=== PATIENT | female | born 1990 | race Caucasian/White ===

== ENCOUNTER 2016-09-24 11:09 | Emergency (ER) | payer MEDICAID ==
[~2016-09-24] VITALS: Ht 167.6 cm; Wt 61.8 kg
[~2016-09-24 11:09] MED LIST: OMEP-110 PO
[2016-09-24 11:12] VITALS: BP 124/81
[2016-09-24] MEDS ORDERED: OXYcodone/APAP 5/325MG TABLET ONE (12:10)
[2016-09-24] MEDS ORDERED: OXYcodone/APAP 5/325MG TABLET PO ONE (12:30)
== END 2016-09-24 12:45 | disposition home or self-care (01) ==
LOC: ED 11:57
DX: S92.524A Nondisplaced fracture of middle phalanx of right lesser toe(s), initial encounter for closed fracture (principal); Z88.6 Allergy status to analgesic agent; X58.XXXA Exposure to other specified factors, initial encounter; Y93.89 Activity, other specified; Y99.8 Other external cause status; Y92.099 Unspecified place in other non-institutional residence as the place of occurrence of the external cause

== ENCOUNTER 2016-10-28 20:56 | Emergency (ER) | payer MEDICAID ==
[~2016-10-28] VITALS: Ht 167.6 cm; Wt 62.3 kg
[2016-10-28 20:58] VITALS: BP 127/76
[2016-10-28] MEDS ORDERED: HYDROcodone/APAP 5/325 TABLET ONE (21:28)
[2016-10-28] MEDS ORDERED: HYDROcodone/APAP 5/325 TABLET PO ONE (21:30)
== END 2016-10-28 22:34 | disposition home or self-care (01) ==
LOC: ED 22:15
DX: S62.366A Nondisplaced fracture of neck of fifth metacarpal bone, right hand, initial encounter for closed fracture (principal); K21.9 Gastro-esophageal reflux disease without esophagitis; W18.09XA Striking against other object with subsequent fall, initial encounter; Y93.89 Activity, other specified; Y99.8 Other external cause status; Y92.099 Unspecified place in other non-institutional residence as the place of occurrence of the external cause
CPT/HCPCS: 29125

== ENCOUNTER 2016-10-31 11:12 | Emergency (ER) | payer MEDICAID ==
[~2016-10-31] VITALS: Ht 170.2 cm; Wt 62.6 kg
[2016-10-31 11:19] VITALS: BP 121/74
[2016-10-31] MEDS ORDERED: IBUPROFEN 200 MG TABLET ONE (11:46)
[2016-10-31] MEDS ORDERED: HYDROcodone/APAP 5/325 TABLET ONE (11:46)
[2016-10-31] MEDS ORDERED: HYDROcodone/APAP 5/325 TABLET PO ONE (12:00)
[2016-10-31] MEDS ORDERED: IBUPROFEN 200 MG TABLET PO ONE (12:00)
== END 2016-10-31 12:24 | disposition home or self-care (01) ==
LOC: ED 12:13
DX: S62.366A Nondisplaced fracture of neck of fifth metacarpal bone, right hand, initial encounter for closed fracture (principal); S62.646B Nondisplaced fracture of proximal phalanx of right little finger, initial encounter for open fracture; K21.9 Gastro-esophageal reflux disease without esophagitis; X58.XXXA Exposure to other specified factors, initial encounter; Y93.89 Activity, other specified; Y92.89 Other specified places as the place of occurrence of the external cause; Y99.8 Other external cause status
CPT/HCPCS: 29125; 99283

== ENCOUNTER 2017-01-29 19:13 | Emergency (ER) | payer MEDICAID ==
[~2017-01-29] VITALS: Ht 167.6 cm; Wt 61.4 kg
[2017-01-29 19:14] VITALS: BP 140/80
[2017-01-29] MEDS ORDERED: HYDROcodone/APAP 5/325 TABLET PO ONE (20:00)
[2017-01-29] MEDS ORDERED: DIAZEPAM 5 MG TABLET PO ONE (20:00)
[2017-01-29] MEDS ORDERED: DIAZEPAM 5 MG TABLET ONE (20:26)
[2017-01-29] MEDS ORDERED: HYDROcodone/APAP 5/325 TABLET ONE (20:27)
[2017-01-29 20:34] LABS: HCG UR OBC PASS
[2017-01-29 20:35] LABS: PATH.CAST-FLAG NOT PRESENT; SPERM-FLAG NOT PRESENT; SRC-FLAG NOT PRESENT; XTAL-FLAG NOT PRESENT; YLC-FLAG NOT PRESENT
== END 2017-01-29 21:23 | disposition home or self-care (01) ==
LOC: ED 21:10
DX: S29.012A Strain of muscle and tendon of back wall of thorax, initial encounter (principal); N30.90 Cystitis, unspecified without hematuria; K21.9 Gastro-esophageal reflux disease without esophagitis; X58.XXXA Exposure to other specified factors, initial encounter; Y93.89 Activity, other specified; Y92.89 Other specified places as the place of occurrence of the external cause; Y99.8 Other external cause status
CPT/HCPCS: 71010; 81001; 81025; 87086; 99285

== ENCOUNTER 2017-07-18 19:06 | Emergency (ER) | payer MEDICAID ==
[~2017-07-18] VITALS: Ht 167.6 cm; Wt 65.0 kg
[~2017-07-18 19:06] MED LIST changes: +CLON0.12 PO
[2017-07-18 19:09] VITALS: BP 113/74
[2017-07-18] MEDS ORDERED: ALPR1TAB2 PO (19:30)
[2017-07-18] MEDS ORDERED: DIAZEPAM 5 MG TABLET PO ONE (20:30)
[2017-07-18] MEDS ORDERED: DIAZEPAM 5 MG TABLET ONE (20:30)
[2017-07-18] MEDS ORDERED: HYDROcodone/APAP 5/325 TABLET PO ONE (20:30)
[2017-07-18] MEDS ORDERED: HYDROcodone/APAP 5/325 TABLET ONE (20:30)
== END 2017-07-18 21:48 | disposition home or self-care (01) ==
LOC: ED 21:17
DX: S39.012A Strain of muscle, fascia and tendon of lower back, initial encounter (principal); K21.9 Gastro-esophageal reflux disease without esophagitis; G43.909 Migraine, unspecified, not intractable, without status migrainosus; W18.30XA Fall on same level, unspecified, initial encounter; Y93.89 Activity, other specified; Y99.8 Other external cause status; Y92.89 Other specified places as the place of occurrence of the external cause
CPT/HCPCS: 72110; 72220; 99284

== ENCOUNTER 2018-08-31 20:25 | Emergency (ER) | payer MEDICAID ==
[~2018-08-31] VITALS: Ht 167.6 cm; Wt 80.7 kg
[~2018-08-31 20:25] MED LIST changes: +ALPR1TAB2 PO
[2018-08-31 20:48] VITALS: BP 147/87
--- NOTE | 2018-08-31 20:54 | NUR ---
assessment made. chart up for MD to see.
--- NOTE | 2018-08-31 21:37 | NUR ---
patient discharged with prescriptions and instruction. vebalized understanding.
== END 2018-08-31 21:39 | disposition home or self-care (01) ==
LOC: ED 21:16
DX: K08.89 Other specified disorders of teeth and supporting structures (principal); K21.9 Gastro-esophageal reflux disease without esophagitis; G43.909 Migraine, unspecified, not intractable, without status migrainosus
CPT/HCPCS: 99283

== ENCOUNTER 2020-01-07 11:34 | Emergency (ER) | payer MEDICAID ==
[~2020-01-07] VITALS: Ht 167.6 cm; Wt 67.9 kg
[~2020-01-07 11:34] MED LIST changes: +APIX5TAB PO
--- NOTE | 2020-01-07 12:18 | NUR ---
CHRISTIN PEREZ AT BEDSIDE FOR INITIAL ASSESSMENT.
[2020-01-07 12:35] VITALS: BP 125/66
--- NOTE | 2020-01-07 12:38 | NUR ---
pt presents to ED with c/o increased vertigo for last 2 days, denies other symptoms. EKG taken in triage, all monitors in place. pt is sinus tach rate 90s with no ectopy. pt a&o, resps even and unlabored, neuro intact. awaiting further orders at this time.
--- NOTE | 2020-01-07 13:02 | NUR ---
dc orders received, pt given dc instructions. pt a&o, resps even and unlabored, nsr on cardiac cath lab manager with no ectopy. pt ambulatory to dc desk with steady gait.
== END 2020-01-07 13:03 | disposition home or self-care (01) ==
LOC: ED 12:53
DX: R42 Dizziness and giddiness (principal); R00.0 Tachycardia, unspecified; R07.89 Other chest pain; G43.909 Migraine, unspecified, not intractable, without status migrainosus; K21.9 Gastro-esophageal reflux disease without esophagitis; Z86.718 Personal history of other venous thrombosis and embolism
CPT/HCPCS: 93005; 99283

== ENCOUNTER 2020-07-31 21:54 | Emergency (ER) | payer MEDICAID ==
[~2020-07-31] VITALS: Ht 167.6 cm; Wt 63.0 kg
[2020-07-31 22:42] LABS: BASOPHILS % (AUTO) 1 % (0-1); EOSINOPHILS % (AUTO) 2 % (1-7); LYMPHOCYTES % (AUTO) 36 % (22-44); MD NO; MEAN CORPUSCULAR HEMOGLOBIN 32.5 pg (27.0-34.8); MEAN CORPUSCULAR HGB CONC 34.5 g/dL (32.4-35.8); MEAN PLATELET VOLUME 8.1 fL (7.4-10.4); MONOCYTES % (AUTO) 8 % (2-9); NEUTROPHILS % (AUTO) 54 % (42-75); PLATELET COUNT 262 x10^3/uL (130-400); RED BLOOD COUNT 4.18 x10^6/uL (3.82-5.3); RED CELL DISTRIBUTION WIDTH 13.2 % (9.6-15.2)
[2020-07-31 22:55] LABS: ALANINE AMINOTRANSFERASE 16 U/L (12-78); ANION GAP 7 mmol/L (5-15); CALCIUM 8.4 mg/dL (8.5-10.1); CHLORIDE 107 mmol/L (98-107); CREATININE 0.83 mg/dL (0.55-1.02)
[2020-07-31 22:59] LABS: ALKALINE PHOSPHATASE 44 U/L (45-117); BILIRUBIN,TOTAL 1.1 mg/dL (0.2-1.0); TOTAL PROTEIN 7.3 g/dL (6.4-8.2)
[2020-07-31 23:01] LABS: MICROSCOPIC INDICATED
[2020-08-01 00:20] VITALS: BP 114/69
[2020-08-01 00:37] LABS: WET PREP WBCS MANY (FEW)
[2020-08-01 00:54] LABS: CLUE CELLS NONE SEEN (NONE SEEN)
== END 2020-08-01 01:31 | disposition home or self-care (01) ==
LOC: ED 08-01 01:15
DX: R10.32 Left lower quadrant pain (principal); N73.0 Acute parametritis and pelvic cellulitis; N89.8 Other specified noninflammatory disorders of vagina; K21.9 Gastro-esophageal reflux disease without esophagitis; G43.909 Migraine, unspecified, not intractable, without status migrainosus; R11.0 Nausea
CPT/HCPCS: 36415; 80053; 81001; 83690; 84703; 85025; 87086; 87147; 87210; 87491; 87591; 87808; 99284

== ENCOUNTER 2020-10-23 18:58 | Emergency (ER) | payer MEDICAID ==
[~2020-10-23] VITALS: Ht 167.6 cm; Wt 62.4 kg
--- NOTE | 2020-10-23 19:24 | NUR ---
pt came into ed after having tooth pain that began two days prior and today began "bubbling up". pt reports hx of dental issues and abcesses. typically uses [facility] but was unable to get an appt and get in yet. pt reports taking over the counter ibuprofen around the clock for pain. pain and swelling is on the right upper side. Patient is resting comfortably in bed. Bed in lowest, rails engaged, call light on lap. WCTM.
[2020-10-23] MEDS ORDERED: BUPIVACAINE 0.25% ONE (19:27)
[2020-10-23] MEDS ORDERED: LIDOCAINE-MPF 1%, 5ML ONE (19:27)
[2020-10-23] MEDS ORDERED: LIDOCAINE-MPF 1%, 2ML ONE (19:27)
[2020-10-23] MEDS ORDERED: LIDOCAINE 1%, 2ML INFIL ONE (19:30)
[2020-10-23] MEDS ORDERED: BUPIVACAINE 0.25% INFIL ONE (19:30)
[2020-10-23] MEDS ORDERED: ACETAMINOPHEN 500 MG TABLET ONE (19:53)
[2020-10-23] MEDS ORDERED: PENICILLIN VK 500MG TABLET ONE (19:53)
[2020-10-23 19:57] VITALS: BP 117/72
[2020-10-23] MEDS ORDERED: PENICILLIN VK 500MG TABLET PO ONE (20:00)
[2020-10-23] MEDS ORDERED: ACETAMINOPHEN 500 MG TABLET PO ONE (20:00)
== END 2020-10-23 20:06 | disposition home or self-care (01) ==
LOC: ED 19:45
DX: K04.7 Periapical abscess without sinus (principal); K02.9 Dental caries, unspecified; G43.909 Migraine, unspecified, not intractable, without status migrainosus; R00.0 Tachycardia, unspecified
CPT/HCPCS: 41800; 99284

== ENCOUNTER 2020-11-14 14:25 | Emergency (ER) | payer MEDICAID ==
[~2020-11-14] VITALS: Ht 167.6 cm; Wt 65.0 kg
[2020-11-14 14:28] VITALS: BP 109/71
[2020-11-14] MEDS ORDERED: BENZOCAINE AEROSOL SPRAY 20%, 60ML ONE (14:44)
[2020-11-14] MEDS ORDERED: BENZOCAINE 20% SPRAY 0.5ML ONE (14:55)
--- NOTE | 2020-11-14 14:57 | NUR ---
MED PULLED FOR PROVIDER ADMIN
[2020-11-14] MEDS ORDERED: BENZOCAINE 20% SPRAY 0.5ML TP ONE (15:00)
== END 2020-11-14 15:41 | disposition home or self-care (01) ==
LOC: ED 14:41
DX: K04.7 Periapical abscess without sinus (principal); K08.89 Other specified disorders of teeth and supporting structures
CPT/HCPCS: 41800; 99284

== ENCOUNTER 2021-01-24 09:57 | Emergency (ER) | payer MEDICAID ==
[~2021-01-24] VITALS: Ht 167.6 cm; Wt 64.2 kg
--- NOTE | 2021-01-24 10:10 | NUR ---
BIB EMS, SUDDEN ONSET SUBSTERNAL CP WHILE WALKING 01/21. PAIN SUBSIDED WITH REST BUT RTD SOON SHE STARTED WALKING AGAIN. ASSOCIATED SOB. PT AMBULATED TO BATHROOM STEADY GAIT. RTD TO ROOM W/O INCIDENT. ALL MONITORS PLACED, CALL LIGHT W/I REACH. EKG COMPLETED. PT DENIES CP AT THIS TIME. PROVIDER ALESHA PENDING
[2021-01-24] MEDS ORDERED: FUROSEMIDE 40 MG/4 ML ONE (10:18)
[2021-01-24] MEDS ORDERED: SODIUM CHLORIDE FLUSH 10ML SYR IVF ONE (10:30)
--- NOTE | 2021-01-24 10:39 | NUR ---
THANG SMALL AT BEDSIDE, PT ASSESSMENT REVIEWED. PT ALSO C/O INTERMITTANT CRAMPING ON BOTTOM OF LEFT FOOT AND C/O FOOT "FEELING NUMB". POC DISCUSSED AND QUESTIONS ANSWERED.
--- NOTE | 2021-01-24 10:40 | NUR ---
LABS DRAWN AND SENT TO LAB. US TECH AT BEDSIDE.
[2021-01-24 10:49] LABS: BASOPHILS % (AUTO) 1 % (0-1); EOSINOPHILS % (AUTO) 1 % (1-7); LYMPHOCYTES % (AUTO) 34 % (22-44); MEAN CORPUSCULAR HEMOGLOBIN 32.4 pg (27.0-34.8); MEAN PLATELET VOLUME 8.9 fL (7.4-10.4); MONOCYTES % (AUTO) 5 % (2-9); NEUTROPHILS % (AUTO) 59 % (42-75); PLATELET COUNT 214 x10^3/uL (130-400); RED BLOOD COUNT 4.17 x10^6/uL (3.82-5.3); RED CELL DISTRIBUTION WIDTH 13.8 % (9.6-15.2)
[2021-01-24 10:57] LABS: ALBUMIN 3.8 g/dL (3.4-5.0); ANION GAP 7 mmol/L (5-15); CALCIUM 8.4 mg/dL (8.5-10.1); CHLORIDE 107 mmol/L (98-107); CREATININE 0.81 mg/dL (0.55-1.02)
[2021-01-24 11:01] LABS: TROPONIN I < 0.015 ng/mL (0.000-0.045)
--- NOTE | 2021-01-24 11:11 | NUR ---
PT TO CT WITH TECH TRANSPORT
[2021-01-24] MEDS ORDERED: OMNIPAQUE 350 MG/ML, 75ML BOTTLE ONE (11:27)
[2021-01-24 11:54] VITALS: BP 118/58
--- NOTE | 2021-01-24 11:55 | NUR ---
THANG PANTOJA AT BEDSIDE, TEST RESULTS REV AND QUESTIONS ANSWERED. D/C PLAN
--- NOTE | 2021-01-24 12:25 | NUR ---
Patient/Caregiver given discharge instructions and they have confirmed that they understand the instructions. Patient ambulatory with steady gait. NAD, all questions answered appropriately, denies additional needs at this time. No personal belongings left in room after discharge.
== END 2021-01-24 12:26 | disposition home or self-care (01) ==
LOC: ED 10:04
DX: R07.89 Other chest pain (principal); K21.9 Gastro-esophageal reflux disease without esophagitis; G43.909 Migraine, unspecified, not intractable, without status migrainosus
CPT/HCPCS: 36415; 71275; 80048; 82040; 84484; 84703; 85025; 93005; 93971; 99285; Q9967